=== PATIENT | female | born 1955 | race Caucasian/White ===

== ENCOUNTER → 2023-03-21 07:52 | Outpatient (REF) | payer MEDICARE, OTHER, SELFPAY | LOC: WDC 07:52 | PROVIDERS: ATTENDING PHYSICIAN Surgery; FAMILY PHYSICIAN Family Medicine | DX: R92.2 Inconclusive mammogram (principal) | CPT/HCPCS: 76641 ==

== ENCOUNTER → 2023-03-31 06:42 | Outpatient (REF) | payer MEDICARE, OTHER, SELFPAY ==
--- NOTE | 2023-03-31 09:33 | OID.BR.INTR ---
[facility] Breast Navigator - Initial
- -
Date of Contact: 03/31/23
Met with patient. Patient given information on navigator service available at [facility]. Will follow up as needed per protocol.
== END ==
LOC: WDC 06:42
PROVIDERS: ATTENDING PHYSICIAN Surgery; FAMILY PHYSICIAN Family Medicine
DX: R92.1 Mammographic calcification found on diagnostic imaging of breast (principal)
CPT/HCPCS: 88305; 19081; 76098; A4648

== ENCOUNTER → 2023-07-15 07:45 | Outpatient (REF) | payer MEDICARE, OTHER, SELFPAY | LOC: WDC 07:45 | PROVIDERS: ATTENDING PHYSICIAN Surgery; FAMILY PHYSICIAN Family Medicine | DX: R92.8 Other abnormal and inconclusive findings on diagnostic imaging of breast (principal) | CPT/HCPCS: 76642 ==

== ENCOUNTER → 2023-07-23 11:36 | Outpatient (REF) | payer MEDICARE, OTHER, SELFPAY | LOC: WDC 11:36 | PROVIDERS: ATTENDING PHYSICIAN Surgery; FAMILY PHYSICIAN Family Medicine | DX: R92.8 Other abnormal and inconclusive findings on diagnostic imaging of breast (principal) | CPT/HCPCS: 77061; 77065 ==

== ENCOUNTER → 2023-10-14 07:50 | Outpatient (REF) | payer MEDICARE, OTHER, SELFPAY | LOC: WDC 07:50 | PROVIDERS: ATTENDING PHYSICIAN Surgery; FAMILY PHYSICIAN Family Medicine | DX: R92.8 Other abnormal and inconclusive findings on diagnostic imaging of breast (principal) | CPT/HCPCS: 76642 ==

== ENCOUNTER → 2024-01-27 08:21 | Outpatient (REF) | payer MEDICARE, OTHER, SELFPAY | LOC: WDC 08:21 | PROVIDERS: ATTENDING PHYSICIAN Surgery; FAMILY PHYSICIAN Family Medicine | DX: Z12.31 Encounter for screening mammogram for malignant neoplasm of breast (principal) | CPT/HCPCS: 77063; 77067 ==

== ENCOUNTER → 2024-03-30 14:58 | Outpatient (REF) | payer MEDICARE, OTHER, SELFPAY | LOC: WDC 14:58 | PROVIDERS: ATTENDING PHYSICIAN Surgery; FAMILY PHYSICIAN Family Medicine | DX: R92.2 Inconclusive mammogram (principal) | CPT/HCPCS: 76641 ==

== ENCOUNTER → 2025-02-01 08:30 | Outpatient (REF) | payer MEDICARE, OTHER, SELFPAY | LOC: WDC 08:30 | PROVIDERS: ATTENDING PHYSICIAN Surgery; FAMILY PHYSICIAN Family Medicine | DX: Z12.31 Encounter for screening mammogram for malignant neoplasm of breast (principal); R92.2 Inconclusive mammogram | CPT/HCPCS: 77063; 77067 ==